=== PATIENT | male | born 1960 | race African-American/Black ===

== ENCOUNTER 2021-02-18 15:44 | Inpatient (IN) | payer SELFPAY ==
[~2021-02-18] VITALS: Ht 172.7 cm; Wt 74.8 kg
[2021-02-19 00:54] LABS: BASOPHILS % 0.9 % (0.0-2.0); EOSINOPHILS % 5.1 % (0.0-5.0); HEMATOCRIT. 43.4 % (42.0-52.0); HEMOGLOBIN. 15.2 g/dL (14.0-18.0); MEAN CORPUSCULAR HEMOGLOBIN 28.7 pg (28.0-32.0); MEAN CORPUSCULAR VOLUME 81.7 fL (80.0-94.0); MEAN PLATELET VOLUME 7.7 fl (7.4-10.4); MONOCYTES % 10.1 % (2.0-8.0); NEUTROPHILS % 40.9 % (40.0-76.0); PLATELET 153 x1000/uL (130-400); RED BLOOD CELL COUNT 5.31 mill/uL (4.7-6.1); RED CELL DISTRIBUTION WIDTH 13.7 % (11.6-14.6)
[2021-02-19 00:57] LABS: CHLORIDE 107 mEq/L (98-107)
[2021-02-19] MEDS ORDERED: HEPARIN 25,000 UNITS PREMIX 250 ML IV PRN (01:30)
[2021-02-19] MEDS ORDERED: HEPARIN 5000 UNITS/ML VIAL IV SCH (01:30)
[2021-02-19 02:14] LABS: PARTIAL THROMBOPLASTIN TIME 27.3 sec (23.4-31.0); PROTHROMBIN TIME 10.9 sec (9.6-11.0)
[2021-02-19] MEDS ORDERED: HEPARIN 5000 UNITS/ML VIAL IV NR (03:00)
[2021-02-19 03:19] LABS: PARTIAL THROMBOPLASTIN TIME 26.9 sec (23.4-31.0); PROTHROMBIN TIME 10.9 sec (9.6-11.0)
[2021-02-19] MEDS ORDERED: HEPARIN BOLUS PRN aPTT <36 IV (10:00)
[2021-02-19] MEDS ORDERED: HEPARIN BOLUS PRN aPTT 37-44 IV (10:00)
[2021-02-19] MEDS ORDERED: ONDANSETRON HCL 4MG/2ML INJ IV PRN (12:45)
[2021-02-19] MEDS ORDERED: CLONIDINE 0.1MG TABLET PO PRN (12:45)
[2021-02-19] MEDS ORDERED: LORAZEPAM 0.5MG TABLET PO PRN (12:45)
[2021-02-19] MEDS ORDERED: DOCUSATE SODIUM 100MG CAPSULE PO PRN (12:45)
[2021-02-19] MEDS ORDERED: ACETAMINOPHEN 325MG TABLET PO PRN ×2 (12:45)
[2021-02-19] MEDS ORDERED: NALOXONE HCL 0.4MG/ML VIAL IV PRN (12:45)
[2021-02-19] MEDS ORDERED: HYDROCODONE/ACETAMINOPHEN 5/325MG TABLET PO PRN (12:45)
[2021-02-19] MEDS ORDERED: IPRATROPIUM/ALBUTEROL 0.5-3(2.5)MG/3ML NEB HHN PRN (12:45)
[2021-02-19] MEDS: LOSARTAN POTASSIUM 25 MG TABLET PO SCH (14:29)
[2021-02-19 17:30] VITALS: BP 145/87
[2021-02-19 20:00] VITALS: BP 121/79
[2021-02-19 21:41] LABS: *AMPHETAMINES SCREEN URINE NEGATIVE (NEGATIVE); CANNABINOID URINE SCREEN PRESUMTIVE POSITIVE (NEGATIVE); METHADONE URINE SCREEN NEGATIVE (NEGATIVE); OPIATES URINE SCREEN NEGATIVE (NEGATIVE); PHENCYCLIDINE URINE SCREEN NEGATIVE (NEGATIVE)
[2021-02-19 21:42] LABS: *BARBITURATES SCREEN URINE NEGATIVE (NEGATIVE); *BENZODIAZEPINES SCREEN URINE NEGATIVE (NEGATIVE); *COCAINE SCREEN URINE NEGATIVE (NEGATIVE)
[2021-02-20] VITALS: BP 22/79
[2021-02-20 04:00] VITALS: BP 113/77
[2021-02-20 08:00] VITALS: BP 126/79
[2021-02-20] MEDS: LOSARTAN POTASSIUM 25 MG TABLET PO SCH (09:57)
[2021-02-20 12:00] VITALS: BP 118/82
[2021-02-20] MEDS ORDERED: LOSA25TA3 PO (13:39)
[2021-02-20 16:00] VITALS: BP 121/74
[2021-02-20 17:13] VITALS: BP 121/74
== END 2021-02-20 17:52 | disposition home or self-care (01) | DRG 351 ==
LOC: ER 16:55 → MICUSO 02-19 05:05 → 8WST 02-19 07:26 → MICUSO 02-19 11:31 → EDBEDREQSVC 02-19 12:44 → 6EST 02-19 16:24
PROVIDERS: ADMIT Internal Medicine; ATTEND Internal Medicine
DX: M79.662 Pain in left lower leg (principal); D72.821 Monocytosis (symptomatic); I10 Essential (primary) hypertension; M79.661 Pain in right lower leg
CPT/HCPCS: 36415; 80053; 80305; 83880; 85025; 85379; 93005; 93970; 99285; J1644